=== PATIENT | female | born 1975 | race Two or more races ===

== ENCOUNTER 2016-06-28 05:49 | Emergency (ER) | payer OTHER ==
[~2016-06-28] VITALS: Ht 172.7 cm; Wt 113.4 kg
[2016-06-28] MEDS ORDERED: IV SET PRIMARY 1 EA INFUS.SET MC ONE (06:14)
[2016-06-28] MEDS ORDERED: IV NS 0.9% 1,000 ML ONE (06:14)
[2016-06-28] MEDS: IV NS 0.9% 1,000 ML BAG IV ONE ×2 (06:15→06:17)
[2016-06-28 06:55] LABS: BASOPHILS % (AUTO) 0.4 % (0.0-2.0); DIFF TOTAL % 100 %; EOSINOPHILS # (AUTO) 0.1 /CMM (0.0-0.7); EOSINOPHILS % (AUTO) 0.9 % (0.0-6.0); HEMATOCRIT 42 % (33-45); HEMOGLOBIN 13.7 g/dL (11.5-14.8); LYMPHOCYTES # (AUTO) 3.2 /CMM (0.8-4.8); LYMPHOCYTES % (AUTO) 28.6 % (20.0-44.0); MEAN CORPUSCULAR HEMOGLOBIN 29 PG (26.0-33.0); MEAN CORPUSCULAR HGB CONC 33 g/dl (31.0-36.0); MEAN CORPUSCULAR VOLUME 89 fL (82-100); MONOCYTES # (AUTO) 0.4 /CMM (0.1-1.30); MONOCYTES % (AUTO) 3.4 % (2.0-12.0); NEUTROPHILS # (AUTO) 7.4 /CMM (1.8-8.9); NEUTROPHILS % (AUTO) 66.7 % (43.0-81.0); PLATELET COUNT (AUTO) 216 /CMM (150-450); RED BLOOD CELL COUNT(AUTO) 4.72 MIL/uL (4.0-5.2); WHITE BLOOD COUNT (AUTO) 11.1 K/uL (4.3-11.0)
[2016-06-28 06:58] LABS: ADD UA MICROSCOPIC YES; KETONES,URINE NEGATIVE (NEGATIVE); LEUKOCYTE ESTERASE ,URINE NEGATIVE (NEGATIVE)
[2016-06-28 07:00] LABS: PREGNANCY TEST URINE QUAL NEGATIVE (NEGATIVE)
[2016-06-28 07:01] LABS: ADD URINE CULTURE NO; RBC,URINE 0-2 /HPF (0-2); WBC,URINE 0-2 /HPF (0-3)
[2016-06-28 07:09] LABS: ANION GAP 18 (5-14); CALCIUM, SERUM 8.2 mg/dL (8.5-10.1); CARBON DIOXIDE 24 mmol/L (21-32); CHLORIDE 108 mmol/L (98-107); CREATININE 0.9 mg/dL (0.6-1.3); GFR 69 mL/min (>60); GLUCOSE 127 mg/dL (74-106); POTASSIUM 3.1 mmol/L (3.5-5.1); SODIUM SERUM 147 mmol/L (136-145); UREA NITROGEN, BLOOD 8 mg/dL (7-18)
[2016-06-28 07:10] LABS: CANNABINOID, URINE NEGATIVE (NEGATIVE); PHENCYCLIDINE SCREEN,URINE NEGATIVE (NEGATIVE)
[2016-06-28 07:11] LABS: TROPONIN I < 0.017 ng/mL (0.00-0.056)
[2016-06-28 07:13] LABS: INR 1.07 (0.87-1.13); PROTHROMBIN TIME 11.6 SECS (9.5-12.7)
[2016-06-28 07:17] LABS: ALANINE AMINOTRANSFERASE 114 U/L (12-78); ALBUMIN 3.5 g/dL (3.4-5.0); ASPARTATE AMINOTRANSFERASE 127 U/L (15-37); BILIRUBIN,DIRECT 0.2 mg/dL (0.0-0.2); BILIRUBIN,TOTAL 0.4 mg/dL (0.2-1.0); INDIRECT BILIRUBIN 0.2 mg/dL (0.0-1.1); TOTAL PROTEIN, SERUM 8.4 g/dL (6.4-8.2)
[2016-06-28] MEDS ORDERED: POTASSIUM CHLORIDE 20 MEQ TAB.PRT.SR PO ONE ×2 (07:25→07:30)
[2016-06-28 07:28] LABS: LACTIC ACID 4.1 mmol/L (0.4-2.0)
[2016-06-28 08:29] VITALS: BP 139/90
== END 2016-06-28 08:37 | disposition home or self-care (01) ==
LOC: ER 05:57 → EDBD 05:57 → ER 08:37
DX: F10.129 Alcohol abuse with intoxication, unspecified (principal); E87.6 Hypokalemia; K70.10 Alcoholic hepatitis without ascites; G40.909 Epilepsy, unspecified, not intractable, without status epilepticus
CPT/HCPCS: 36415; 70450-TC; 71010-TC; 80048-TC; 80076-TC; 80305; 81000-TC; 82140-TC; 83605-TC; 84484-TC; 84703-TC; 85025-TC; 85730-TC; A4606; G6040-TC; J7030; Z7610

== ENCOUNTER → 2021-10-23 | Emergency (ER) | payer OTHER ==
[~2021-10-23] VITALS: Ht 172.7 cm; Wt 96.3 kg
--- NOTE | 2021-10-23 19:30 | NUR ---
PT BIBRA C/O SLIP AND FALL ON KITCHEN FALL AND HIT HEAD. UPON ASSESSMENT, PT DOES HAVE SMALL BUMP ON L SIDE OF FOREHEAD. PT DENIES KO. PT [id number] BREATHING EVENLY AND UNLABORED. PT ATTACHED TO MONITOR AND POX. PT GIVEN BLANKET AND CALL LIGHT WITHIN REACH
--- NOTE | 2021-10-23 19:36 | NUR ---
PT TAKEN TO RADIOLOGY
--- NOTE | 2021-10-23 19:44 | NUR ---
PT RETURNED TO ER BED [address]
--- NOTE | 2021-10-23 20:26 | NUR ---
Patient discharged to home in stable condition. Written and verbal after care instructions given. Patient verbalizes understanding of instruction. PT ambulatory with a steady gait
[2021-10-23 20:45] VITALS: BP 130/92
== END | disposition home or self-care (01) ==
LOC: ER 19:27
DX: S06.9X9A Unspecified intracranial injury with loss of consciousness of unspecified duration, initial encounter (principal); Z86.69 Personal history of other diseases of the nervous system and sense organs; W01.0XXA Fall on same level from slipping, tripping and stumbling without subsequent striking against object, initial encounter; Y93.89 Activity, other specified; Y92.89 Other specified places as the place of occurrence of the external cause; Y99.8 Other external cause status
CPT/HCPCS: 70450-TC